=== PATIENT | male | born 1955 | race Caucasian/White ===

== ENCOUNTER 2024-09-14 09:06 | Outpatient (OUT) | payer MEDICARE, SELFPAY ==
--- NOTE | 2024-09-14 | XR_ITS ---
The [address] [address] Patient Name: MARGO BEACH MRN: [id number] date: 1955 Sex: M Assigned Patient Location: Current Patient Location: Accession/Order Number: [id number] Exam Date: 09/14/2024 13:17 Report Date: 09/14/2024 13:24 At the request of: MARITZA PRADHAN MD Procedure: XR ankle RT min 3V RIGHT WEIGHTBEARING ANKLE - 3 views CLINICAL DATA: Lateral right ankle pain. Previous fall from a roof. COMPARISON: MRI 10/08/2023 AP, lateral and oblique views were obtained. There is no acute fracture or dislocation. There are degenerative changes at the malleoli, greater medially and base of the fifth metatarsal. There is minor lateral and anterior soft tissue swelling. XR/XR ankle RT min 3V IMPRESSION: NO ACUTE BONY FINDINGS. Impression dictated by: Penelope Estevez M.D.09/14/2024 1:24 PM Dictation Location: [place] [address] Electronically authenticated by: [id number] Y Date: 09/14/2024 13:24
== END 2024-09-14 09:07 | disposition home or self-care (01) ==
LOC: EC 09:06
PROVIDERS: PCP Nurse Practitioner Family; Visit Provider Orthopaedic Surgery
DX: M25.571 Pain in right ankle and joints of right foot (principal)
CPT/HCPCS: 73610